=== PATIENT | female | born 1935 | race Caucasian/White ===

== ENCOUNTER 2017-06-03 10:45 | Inpatient (IN) | payer MEDICARE, BC ==
--- NOTE | 2017-05-24 23:19 | HP ---
HISTORY AND PHYSICAL: DATE OF ADMISSION/SURGERY: 06/03/17 SURGEON: Franchesca Pearson MD * (DICTATED BY CELIA HENRY) PROCEDURE: Left total knee arthroplasty. CHIEF COMPLAINT: Left knee pain. HISTORY OF PRESENT ILLNESS: Ms. Ya is an 81-year-old female with complaints of left knee pain secondary to advanced osteoarthritis. She has failed conservative management and has elected to proceed with a left total knee arthroplasty, which is scheduled for 06/03/[address] Pearson. PAST MEDICAL HISTORY: 1. High cholesterol. 2. Anemia. 3. Anxiety. 4. History of breast cancer. 5. Basal cell carcinoma. PAST SURGICAL HISTORY: 1. Lumpectomy. 2. Skin cancer excision. 3. Right total knee replacement. 4. Right knee ligament repair. 5. Right shoulder surgery. CURRENT MEDICATIONS: 1. Tramadol. 2. Trazodone. 3. Valium. 4. Ambien. 5. Ropinirole. 6. Meclizine. ALLERGIES: None. FAMILY HISTORY: Stroke, hypertension, aneurysm, and heart disease. SOCIAL HISTORY: She is an 81-year-old female, she lives alone. She does not smoke, use drugs. She denies alcohol. REVIEW OF SYSTEMS: A complete 14-point review of systems was reviewed with the patient, was positive for anemia. PHYSICAL EXAMINATION GENERAL: She is well developed, well nourished, in no acute distress. VITAL SIGNS: She stands 5 feet 2 inches tall, weighs 153 pounds. Her blood pressure is 139/73, her heart rate is 84. HEENT: Normocephalic, atraumatic. NECK: Supple. No palpable lymph nodes. PULMONARY: Lungs are clear to auscultation bilaterally. CARDIO: Regular rate and rhythm. Strong S1, S2. ABDOMEN: Soft, nontender, nondistended. NEUROLOGICAL: Alert and oriented x3. Cranial nerves II through XII are intact. MUSCULOSKELETAL: Left lower extremity, the skin is intact. There are no open wounds or abrasions. She has a moderate joint effusion, tenderness over the medial and lateral joint line. No varus or valgus instability. Negative Rianna. 5 to 100 degrees flexion. Her lower extremity muscle group strengths are intact at 5/5. She has 2+ dorsalis pedis pulses. ASSESSMENT AND PLAN: Ms. Ya is an 81-year-old female with complaints of left knee pain secondary to advanced osteoarthritis. She has failed conservative management and has elected to proceed with a left total knee arthroplasty, which is scheduled for 06/03/[address] Pearson discussed the risks and benefits of the surgery at today's visit and all of her questions were answered. Coumadin, Colace, and Percocet were sent to her pharmacy for postoperative pain control and DVT prophylaxis. She will see Dr. Pearson back in 2 weeks after the surgery. CELIA HENRY [id number]/[facility] #: [id number] MELISSA
[~2017-06-03 10:45] MED LIST: Buffered Lidocaine 0.9% SYRIN* 5 ML/SYR SYRINGE INTRADERM ONE; Famotidine IV* 10 MG/ML 2 ML (20 mg) IV ONE
[2017-06-03] MEDS ORDERED: Buffered Lidocaine 0.9% SYRIN* 5 ML/SYR SYRINGE ONE (10:51)
[2017-06-03] MEDS ORDERED: Famotidine IV* 10 MG/ML 2 ML (20 mg) ONE (10:51)
[2017-06-03] MEDS ORDERED: ceFAZolin 2 GM PREMIX(*) 2 GM/50 ML BAG IVPB ONE (10:51)
[2017-06-03] MEDS ORDERED: Gabapentin CAP(*) 300 MG PO ONE (11:49)
[2017-06-03] MEDS ORDERED: fentaNYL* 50 MCG/ML 2 ML VIAL (100 MCG VIAL) ONE (11:54)
[2017-06-03] MEDS ORDERED: Midazolam* 1 MG/ML 5 ML VIAL (5 MG) ONE (11:54)
[2017-06-03] MEDS ORDERED: Morphine PF AMP (0.5MG/ML)* 5 MG/10 ML AMP ONE (14:01)
[2017-06-03] MEDS ORDERED: KETAMINE HCL* 50 MG/ML 10 ML VIAL ONE (14:18)
[2017-06-03] MEDS ORDERED: Ondansetron INJ* 2 MG/ML VIAL ONE (14:36)
[2017-06-03] MEDS ORDERED: Ketorolac INJ* 30 MG/ML 1 ML VIAL ONE (14:36)
[2017-06-03] MEDS ORDERED: Propofol* 10 MG/ML 20 ML BTL IV PUSH ONE (14:36)
[2017-06-03] MEDS ORDERED: Lidocaine 2% PF * 5 ML VIAL ONE (14:36)
[2017-06-03] MEDS ORDERED: Acetaminophen TAB* 325 MG PO PRN (15:10)
[2017-06-03] MEDS ORDERED: oxyCODONE TAB* 5 MG TAB PO PRN (15:10)
[2017-06-03] MEDS ORDERED: DiMENhydriNATE IV* 50 MG/ML VIAL IV PUSH PRN ×2 (15:10→15:18)
[2017-06-03] MEDS ORDERED: HYDROmorphone* 1 MG/ML 1 ML SYR IV PRN (15:10)
[2017-06-03] MEDS ORDERED: Gabapentin CAP(*) 100 MG PO ONE (15:14)
[2017-06-03] MEDS ORDERED: Naloxone* 0.4 MG/ML 1 ML VIAL IV PRN (15:15)
[2017-06-03] MEDS ORDERED: Nalbuphine* 20 MG/ML 1 ML VIAL IV PRN (15:15)
[2017-06-03] MEDS ORDERED: oxyCODONE/Acetamin 5/325 MG* TAB PO PRN (15:20)
[2017-06-03] MEDS ORDERED: Diazepam TAB(*) 2 MG PO PRN ×2 (15:22→22:00)
[2017-06-03] MEDS ORDERED: Midazolam* 1 MG/ML 2 ML VIAL (2 MG) ONE (15:27)
[2017-06-03] MEDS ORDERED: Bisacodyl SUPP* 10 MG SUPP PR PRN (16:23)
[2017-06-03] MEDS ORDERED: diPHENhydraMINE IV* 50 MG/ML 1 ml VIAL (BENADRYL) IV PRN (16:23)
[2017-06-03] MEDS ORDERED: Polyethylene Glycol 3350* 17 GM PACKET PO PRN (16:23)
--- NOTE | 2017-06-03 17:12 | RAD ---
INDICATION: Left knee arthroplasty COMPARISON: May 10, 2017 TECHNIQUE: A portable 2 view examination is submitted. FINDINGS: There is left knee arthroplasty. Both femoral and tibial components appear well seated. There is overlying cooling jacket. IMPRESSION: LEFT KNEE ARTHROPLASTY.
[2017-06-03] MEDS ORDERED: Warfarin TAB(*) 6 MG PO ONE (20:30)
[2017-06-03] MEDS: traZODone TAB* 50 MG TAB PO SCH (20:36)
[2017-06-03] MEDS: Magnesium Hydroxide LIQ* 30 ML UDC PO SCH (20:36)
[2017-06-03] MEDS: Docusate CAP* 100 MG PO SCH (20:36)
[2017-06-03] MEDS: rOPINIRole TAB* 1 MG PO SCH (20:41)
[2017-06-03] MEDS: Ibuprofen TAB* 600 MG PO SCH (21:48)
[2017-06-04] MEDS: Ibuprofen TAB* 600 MG PO SCH ×2 (04:12→09:45)
[2017-06-04 05:40] LABS: Hematocrit 28 % (35-47); Hemoglobin 9.2 g/dl (12.0-16.0)
[2017-06-04 05:56] LABS: BUN/Creatinine Ratio 20.5 (8-20); EGFR African American 98.4 (>60); EGFR Non-African American 76.5 (>60); Potassium 3.7 mmol/L (3.5-5.0)
[2017-06-04] MEDS ORDERED: Meclizine TAB* 12.5 MG PO PRN (07:04)
[2017-06-04] MEDS ORDERED: diPHENhydraMINE PO* 25 MG PO PRN (07:04)
[2017-06-04] MEDS ORDERED: diPHENhydraMINE IV* 50 MG/ML 1 ml VIAL (BENADRYL) IV PRN (07:04)
[2017-06-04] MEDS ORDERED: Ondansetron INJ* 2 MG/ML VIAL IV PRN (07:04)
[2017-06-04] MEDS ORDERED: Morphine INJ* 10 MG/ML 1 ML SYRINGE IV PRN (07:04)
[2017-06-04] MEDS ORDERED: Ondansetron TAB* 4 MG PO PRN (07:04)
[2017-06-04] MEDS ORDERED: oxyCODONE/Acetamin 5/325 MG* TAB PO PRN (07:04)
[2017-06-04] MEDS: Cholecalciferol TAB* 1000 UNITS PO SCH (07:31)
[2017-06-04] MEDS: Docusate CAP* 100 MG PO SCH ×2 (07:37→20:04)
[2017-06-04] MEDS: oxyCODONE TAB* 5 MG TAB PO PRN ×4 (07:37→20:04)
[2017-06-04] MEDS: Magnesium Hydroxide LIQ* 30 ML UDC PO SCH ×2 (07:37→19:42)
[2017-06-04] MEDS: Acetaminophen TAB* 325 MG PO PRN ×4 (07:37→20:04)
[2017-06-04] MEDS: rOPINIRole TAB* 1 MG PO SCH ×3 (07:38→21:11)
--- NOTE | 2017-06-04 07:47 | PN ---
Progress Note - Progress Note Date of Service: 06/04/17 SOAP: Subjective: Pt. is alert, no c/o Objective: LLE - dressing c/d/i, distally +df/pf, full sens lt, 2+ dp pulse. Vital Signs: Temp Pulse Resp BP Pulse Ox 97.7 F 71 16 82/41 100 06/04/17 07:22 06/04/17 07:22 06/04/17 07:40 06/04/17 07:22 06/04/17 07:40 Laboratory Results - last 24 hr 06/04/17 06/04/17 06/04/17 05:32 05:32 05:32 Hgb 9.2 L Hct 28 L INR (Anticoag Therapy) 0.97 Sodium 135 Potassium 3.7 Chloride 102 Carbon Dioxide 30 Anion Gap 3 BUN 15 Creatinine 0.73 Est GFR ( Amer) 98.4 Est GFR (Non-Af Amer) 76.5 BUN/Creatinine Ratio 20.5 H Glucose 107 H Calcium 8.0 L Assessment: 81 yo F pod 1 s/p LTKA Plan: 8 mg coumadin tonight, lovenox today wbat pt/ot 1 L NS for hypotension plan home with vns
[2017-06-04] MEDS ORDERED: Diazepam TAB(*) 5 MG PO SCH (09:00)
[2017-06-04] MEDS: NS 0.9% 1000 ML* 1,000 ML IV SCH ×2 (09:30→13:50)
[2017-06-04] MEDS ORDERED: Enoxaparin(*) 30 MG/0.3 ML SYR SUBCUT SCH (17:00)
[2017-06-04] MEDS ORDERED: Warfarin TAB(*) 4 MG PO ONE (17:00)
--- NOTE | 2017-06-04 20:40 | OP ---
OPERATIVE NOTE: DATE OF OPERATION: 06/03/17 DATE OF : 35 ATTENDING SURGEON: Franchesca Pearson MD BUNDLE TIER AND LABELER: CELIA Dorado Sharonda Red did help throughout the procedure with preparation of the leg, wound retraction, manipula tion of the knee, and wound closure. ANESTHESIOLOGIST: Dr. Cota. ANESTHESIA: Spinal. PRE-OP DIAGNOSIS: Severe end-stage degenerative osteoarthritis of the left knee joint with valgus d eformity. POST-OP DIAGNOSIS: Severe end-stage degenerative osteoarthritis of the left knee joint with valgus deformity. OPERATIVE PROCEDURE: Left total knee arthroplasty. TOURNIQUET TIME: 38 minutes. EBL: 200 cc. SPECIMENS: Bone and cartilage from the left knee joint sent to pathology. HARDWARE USED: This is [employer] cemented total knee arthroplasty hardware. For the cement, two packages of Simplex bone cement. For the femur, a left narrow, size 5 femoral component. For t he tibia, a size 3 tibial baseplate. For the insert, a 9-mm posterior stabilized articular insert, size 3-4. For the patella, a 29-mm 7.5 thickness, 3-peg all poly patella. BRIEF HISTORY/INDICATIONS: Ms. Ya is an 81-year-old female with increasingly severe left knee ketan n and valgus deformity. She failed conservative treatment with antiinflammatories, pain medication, intraarticular injections, and physical therapy. Radiographs confirmed [id number] severe arthrit is. Due to continued pain and decreased quality of life, she elected to undergo left total knee art hroplasty. Informed consent was obtained from the patient. She understood the risks of surgery inc luded but were not limited to bleeding, infection, damage to nearby structures, continued pain, need for further surgery, intraoperative fracture, nerve palsy, hardware failure or loosening, knee stif fness, loss of motion, stroke, heart attack, blood clot, and . She wished to proceed. INTRAOPERATIVE FINDINGS: Intraoperatively, the patient had 10 degrees valgus deformity, corrected t o 3 degrees by the end of the case. She had severe end-stage arthritis of the patellofemoral and la teral compartments with complete loss of cartilage. She had some noted lateral femoral condylar hyp oplasia. DESCRIPTION OF PROCEDURE: Ms. Ya was identified in the preanesthesia unit. Her left lower extrem ity was marked as the correct operative side. Informed consent was signed and placed in the chart. The patient was taken to the operating room and placed under spinal anesthesia without difficulty. Epperson catheter was placed. Tourniquet was placed on the left thigh. The left lower extremity was p repped and draped in the usual sterile fashion. Preop time-out was made to correctly identify the p atient's side and site. Appropriate perioperative antibiotics were given within 1 hour of incision. Tourniquet was inflated and total tourniquet time for this procedure was 38 minutes. A 12-cm midlin e incision was made with a 10-blade and carried down to the extensor mechanism. A new 10-blade was used to make a standard medial parapatellar arthrotomy. The patella was subluxed laterally. Electr ocautery was used to subperiosteally elevate the soft tissue along the superomedial tibia to the mid sagittal plane. The knee was flexed up. A drill was used to enter the distal femur. Intramedulla ry distal femoral cutting guide was pinned into position. Oscillating saw was used to make the dista l femoral cut. Next, the external rotation guide was placed on the distal femur. Femur was sized t o a size 5. A size 5 multi-cutting jig was placed on the distal femur. Chamfer cuts were made with the oscillating saw. The PCL was completely released at this point. Tibia was subluxed anteriorly. The extramedullary p roximal tibial cutting guide was pinned down the proximal tibia. Oscillating saw was used to make th e proximal tibial cut. The bone was carefully removed. The knee was brought out into full extensio n. Spacer block had good fit. There was balanced medial and lateral ligaments. Overall alignment w as satisfactory. Flexion and extension gaps were well balanced. The knee was flexed up. Lamina stock controller was placed both medially and laterally. Any remaining menis cus was carefully removed with electrocautery. Posterior osteophytes were removed with a curved ost eotome. A trial size 5 narrow left femur was impacted on to the distal femur without difficulty. T here was good fit and stability. The box for the posterior stabilized implant was prepared using a reamer and box cut osteotome. Size 3 tibial tray trial with a 9-mm insert trial was placed and the knee was taken through a range of motion. There was full extension to 130 degrees of flexion. The patella was everted. A 7 mm of patellar bone and cartilage were carefully removed with an oscillati ng saw. The patella was sized to a size 29. Three peg holes were drilled through the size 29 guide . The 29 trial with 7.5 thickness was placed and the knee was taken through a range of motion. The re was good patellofemoral tracking. All trials were carefully removed. The tibia was subluxed anteriorly and sized to a size 3. Proxim al tibia was prepared using a size 3 keel punch. All bony cut surfaces were copiously irrigated wit h sterile saline and dried. Final implants were cemented into place starting with the tibia, follow ed by the femur and last the patella. A 9-mm insert trial was placed while the knee was brought out into full extension and the cement was allowed to fully cure. Tourniquet was turned down at 38 minutes. Electrocautery was used to obtain meticulous hemostasis. The knee was copiously irrigated with sterile saline. Once the cement had fully cured, the insert trial was removed. Any excess cement was carefully removed from around the capsule and hardware. F inal insert chosen was a 9-mm posterior stabilized articular insert, size 3-4. This was locked into position on the tibial tray without difficulty. Stability of the insert was checked and rechecked and noted to be stable. Final range of motion was full extension to 130 degrees of flexion. The ex tensor mechanism was closed using interrupted #1 Vicryl. The rest of the incision was closed in a l ayered fashion using 0 and 2-0 Vicryl. Skin was closed using running 3-0 nylon suture. Sterile Xer oform, 4x4's, and Webril were used to cover the incision. Dany wrap and cold pack were placed over t his. The patient's anesthesia was reversed without difficulty. She was taken to the PACU in stable condition. Intended weightbearing will be weightbearing as tolerated. Intended DVT prophylaxis wi ll be Coumadin with a Lovenox bridge. [id number]/[facility] #: [id number]
[2017-06-04] MEDS ORDERED: Zolpidem TAB* 10 MG PO SCH (21:00)
[2017-06-04] MEDS: Cyclobenzaprine TAB* 10 MG PO PRN (21:11)
[2017-06-04] MEDS: traZODone TAB* 50 MG TAB PO SCH (21:12)
[2017-06-05] MEDS: oxyCODONE TAB* 5 MG TAB PO PRN ×6 (00:07→22:17)
[2017-06-05] MEDS: Acetaminophen TAB* 325 MG PO PRN ×2 (00:07→05:50)
[2017-06-05 07:04] LABS: Hematocrit 31 % (35-47); Hemoglobin 10.2 g/dl (12.0-16.0)
[2017-06-05] MEDS: rOPINIRole TAB* 1 MG PO SCH ×3 (09:12→22:16)
[2017-06-05] MEDS: Docusate CAP* 100 MG PO SCH ×2 (09:12→22:16)
[2017-06-05] MEDS: Magnesium Hydroxide LIQ* 30 ML UDC PO SCH ×2 (09:13→22:16)
[2017-06-05] MEDS: Cyclobenzaprine TAB* 10 MG PO PRN (09:13)
[2017-06-05] MEDS: Cholecalciferol TAB* 1000 UNITS PO SCH (09:20)
[2017-06-05] MEDS ORDERED: Oxymetazoline 0.05% NASAL SPR* 15 ML BTL BOTH NARES ONE (10:25)
--- NOTE | 2017-06-05 10:25 | PN ---
Progress Note - Progress Note Date of Service: 06/05/17 SOAP: Subjective: Pt. is alert, tired today. Objective: LLE - dressing changed, inc c/d/i. distally nvi. Vital Signs: Temp Pulse Resp BP Pulse Ox 97.5 F 78 16 139/64 99 06/05/17 07:52 06/05/17 07:52 06/05/17 10:05 06/05/17 07:52 06/05/17 08:00 Laboratory Results - last 24 hr 06/05/17 06/05/17 06:31 06:31 Hgb 10.2 L Hct 31 L INR (Anticoag Therapy) 1.76 H Assessment: 81 yo F pod 2 s/p RTKA Plan: wbat rle pt/ot 2 mg coumadin tonight d/c lovenox plan d/c to home tomorrow with vns
[2017-06-05] MEDS ORDERED: Warfarin TAB(*) 2 MG PO ONE (17:00)
[2017-06-05] MEDS: traZODone TAB* 50 MG TAB PO SCH (22:16)
[2017-06-06] MEDS: oxyCODONE TAB* 5 MG TAB PO PRN ×3 (03:46→12:46)
[2017-06-06 06:45] LABS: Hematocrit 27 % (35-47); Hemoglobin 9.1 g/dl (12.0-16.0)
[2017-06-06] MEDS: Magnesium Hydroxide LIQ* 30 ML UDC PO SCH (07:51)
[2017-06-06] MEDS: Cholecalciferol TAB* 1000 UNITS PO SCH (07:51)
[2017-06-06] MEDS: rOPINIRole TAB* 1 MG PO SCH (07:51)
[2017-06-06] MEDS: Docusate CAP* 100 MG PO SCH (07:51)
--- NOTE | 2017-06-06 08:46 | PN ---
Progress Note - Progress Note Date of Service: 06/06/17 SOAP: Subjective: POD #3 Left TKA, doing well. Would like to go home today after PT. Denies CP/SOB , f/c or calf pain Objective: Vitals: Temp Pulse Resp BP Pulse Ox 98.1 F 86 18 128/49 94 06/06/17 07:35 06/06/17 07:35 06/06/17 07:51 06/06/17 07:35 06/06/17 07:35 Gen: A&Ox3, NAD at rest sitting in chair LLE: Dressing C/D/I, moderate edema and ecchymosis to lower leg but calf soft, NT. +f/e at ankle and MTPs. Sensation intact. DP 2+ Labs: Laboratory Results - last 24 hr 06/06/17 06/06/17 06:10 06:10 Hgb 9.1 L Hct 27 L INR (Anticoag Therapy) 1.90 H Assessment: POD #3 Left TKA Plan: D/C home today INR 1.9, Coumadin 2mg tonight F/u with Dr. Pearson 10-14 days
[2017-06-06 12:47] VITALS: BP 122/60
--- NOTE | 2017-06-06 14:31 | DS ---
DISCHARGE SUMMARY: DATE OF ADMISSION: 06/03/17 DATE OF DISCHARGE: 06/06/17 PROVIDER: Franchesca Pearson MD * (DICTATED BY CELIA BERNAL) ADMISSION DIAGNOSES: Severe end-stage osteoarthritis of the left knee. DISCHARGE DIAGNOSES: Severe end-stage osteoarthritis of the left knee, status post left total knee arthroplasty. SECONDARY DIAGNOSES: 1. High cholesterol. 2. Anemia. 3. Anxiety. 4. History of breast cancer. 5. Basal cell carcinoma. HISTORY OF PRESENT ILLNESS: Ms. Ya is an 81-year-old female with ongoing complaints of left knee pain secondary to advanced osteoarthritis. She failed conservative management and elected to proceed with a left total knee arthroplasty. HOSPITAL COURSE: On 06/03/17, the patient was admitted to [facility] and underwent a successful left total knee arthroplasty by Dr. Pearson. She recovered briefly in the postanesthesia care unit and was transferred to the short- stay surgical unit in stable condition. On postop day 1, the patient had some mild hypotension which responded well to a 1 L bolus of lactated Ringer's. Her H and H was 9.2 and 28, INR was 0.97 with 6 mg of Coumadin. Previously, her pain was well controlled with oral pain medication. She was able to participate in physical therapy; however, was unable to walk extended distance. On postop day 2, the patient states that she was feeling a little bit better and was able to do more with physical therapy. Her H and H was 10.1 and 31. INR was 1.7 with 8 mg of Coumadin previously. On postop day 3 , the patient was found stable for discharge home and was comfortable with this plan. She was able to walk a longer distance with the use of a rolling walker. Her pain continued to be well controlled with oral pain medications. H and H was 9.1 and 27. INR was 1.9 with 2 mg of Coumadin previously. DISCHARGE CONDITION: Stable. DISCHARGE MEDICATIONS: 1. The patient will continue with Percocet 5/325 one to two tablets p.o. q.4 to 6 hours p.r.n. pain. 2. Colace 100 mg p.o. b.i.d. p.r.n. constipation. 3. Coumadin 2 mg on 06/06/17. She will have a redraw of her INR on 06/07/17. 4. The patient will resume her home medications of trazodone 50 mg p.o. q.h.s. 5. Ambien 1 tab p.o. q.h.s. 6. Requip 1 tab p.o. t.i.d. 7. Meclizine 25 mg p.o. t.i.d. p.r.n. 8. Magnesium supplement. 9. Multivitamin. 10. Valium 1 tab p.o. daily. 11. Co-Q10 supplement 100 mg p.o. daily. 12. Vitamin D supplement 1000 units p.o. daily. DISCHARGE INSTRUCTIONS: The patient will be weightbearing as tolerated with the use of a rolling walker. She is understanding to keep her dressing on and keep it dry until postop day 4. At that time, she may shower normally; however , she is understanding not to submerge the wound in a bathtub, hot tub, or a swimming pool. A dry dressing will be applied as needed. She will have visiting nurse service for wound care and home INR draws. She will also have home physical therapy. The patient is understanding to call with any questions , concerns, fever greater than 101.5, calf pain, swelling, significant knee pain , swelling, erythema. She has understanding to go directly to the emergency room with any chest pain or shortness of breath. She will follow up in the office 10 to [address] Pearson. All of her questions were answered to her full satisfaction. CELIA BERNAL [id number]/[facility] #: [id number] MELISSA
== END 2017-06-06 12:15 | disposition home health service (06) | DRG 470 ==
LOC: AA 10:45 → SSU 16:23
PROVIDERS: ADMIT Orthopaedic Surgery Adult Reconstructive Orthopaedic Surgery; ATTEND Orthopaedic Surgery Adult Reconstructive Orthopaedic Surgery
PROC: 0SRD0J9 Replacement of Left Knee Joint with Synthetic Substitute, Cemented, Open Approach (ICD-10-PCS; principal; 2017-06-03 13:00)
DX: M17.12 Unilateral primary osteoarthritis, left knee (principal); I95.9 Hypotension, unspecified; E78.00 Pure hypercholesterolemia, unspecified; D64.9 Anemia, unspecified; F41.9 Anxiety disorder, unspecified; Z85.828 Personal history of other malignant neoplasm of skin; Z85.3 Personal history of malignant neoplasm of breast; Z96.651 Presence of right artificial knee joint; Z82.49 Family history of ischemic heart disease and other diseases of the circulatory system; Z82.3 Family history of stroke; G25.81 Restless legs syndrome; M21.062 Valgus deformity, not elsewhere classified, left knee; Z88.8 Allergy status to other drugs, medicaments and biological substances
CPT/HCPCS: 36415; 80048; 85014; 85018; 85610; 94760; A9270-GY; C1776; J0690; J1650; J1885; J2250; J2405; J2704; J3010

== ENCOUNTER 2020-11-25 06:19 | Inpatient (IN) ==
[~2020-11-25 06:19] MED LIST changes: -Buffered Lidocaine 0.9% SYRIN* 5 ML/SYR SYRINGE INTRADERM ONE; +Buffered Lidocaine 1% SYRIN 1 ml INTRADERM ONE; -Famotidine IV* 10 MG/ML 2 ML (20 mg) IV ONE; +Lactated Ringers 1000 ml BAG 1,000 ML IV SCH
[2020-11-25] MEDS ORDERED: ceFAZolin 2 GM PREMIX 2 GM/50 ML BAG ONE (06:31)
[2020-11-25] MEDS ORDERED: Bupivacaine 0.5% SDV PF 30ML VIAL ONE (07:11)
[2020-11-25] MEDS ORDERED: Buffered Lidocaine 1% SYRIN 1 ml INTRADERM ONE (07:14)
[2020-11-25] MEDS ORDERED: fentaNYL 100 mcg/2 ml 50 MCG/ML VIAL ONE (07:22)
[2020-11-25] MEDS ORDERED: Midazolam 2 mg/2 ml VIAL 1 mg/ml 2 ml VIAL (2 mg) ONE (07:22)
[2020-11-25] MEDS ORDERED: Dexamethasone IV 4 MG/ML VIAL 1 ml VIAL ONE (07:23)
[2020-11-25] MEDS ORDERED: Propofol 10 MG/ML 20 ML BTL ONE (07:23)
[2020-11-25] MEDS ORDERED: ROPIVACAINE 5 MG/ML 30 ML BTL (0.5%) ONE (07:23)
[2020-11-25] MEDS ORDERED: Lidocaine 2% PF 5 ML VIAL ONE (07:23)
[2020-11-25] MEDS ORDERED: Rocuronium 50 mg VIAL 10 mg/ml 5 ml VIAL (50 mg) ONE (07:26)
[2020-11-25] MEDS ORDERED: Phenylephrine 40 mcg/mL 10mL (400mcg) SYRINGE ONE (09:01)
[2020-11-25] MEDS ORDERED: Phenylephrine IV 10 MG/ML 1 ml VIAL ONE (09:01)
[2020-11-25] MEDS ORDERED: EPHEDrine (Pressors) 50 MG/ML VIAL ONE (09:02)
[2020-11-25] MEDS ORDERED: Vancomycin 1,000 MG VIAL ONE (09:39)
[2020-11-25] MEDS ORDERED: fentaNYL 100 mcg/2 ml 50 MCG/ML VIAL IV PRN (10:09)
[2020-11-25] MEDS ORDERED: DiMENhydriNATE IV 50 mg/ml 1 ml VIAL IV PUSH PRN (10:09)
[2020-11-25] MEDS ORDERED: Naloxone 0.4 mg VIAL 0.4 mg/ml 1 ml VIAL IV PRN (10:09)
[2020-11-25] MEDS ORDERED: Ondansetron 4 mg VIAL 2 MG/ML 2 ml VIAL IV PRN ×2 (10:09→10:31)
[2020-11-25] MEDS ORDERED: oxyCODONE/Acetamin 5/325 mg TAB PO PRN (10:09)
[2020-11-25] MEDS ORDERED: Lactulose 30 ml UDC PO PRN (10:31)
[2020-11-25] MEDS ORDERED: diPHENhydraMINE 25 mg TAB PO PRN (10:31)
[2020-11-25] MEDS ORDERED: Morphine 2 MG/ML SYRINGE IV PRN (10:31)
[2020-11-25] MEDS ORDERED: Ondansetron ODT 4 mg TAB 4 MG TAB PO PRN (10:31)
[2020-11-25] MEDS ORDERED: Magnesium Hydroxide LIQ 30 ML UDC PO PRN (10:31)
[2020-11-25] MEDS ORDERED: diPHENhydraMINE IV 50 MG/ML 1 ml VIAL (BENADRYL) IV PRN (10:31)
[2020-11-25] MEDS ORDERED: D5W 1/2 NS 1000 ml BAG 1,000 ML IV SCH (11:00)
[2020-11-25] MEDS ORDERED: oxyCODONE/Acetamin 5/325 mg TAB ONE (11:16)
[2020-11-25] MEDS: ceFAZolin 1 GM ADVAN 1 GM in NS 0.9% 50 ML 50 ML IVPB SCH (16:33)
[2020-11-25] MEDS ORDERED: ROPINIROLE 2 MG PO SCH (21:00)
[2020-11-25] MEDS: Magnesium Hydroxide LIQ 30 ML UDC PO SCH (21:20)
[2020-11-26] MEDS: ceFAZolin 1 GM ADVAN 1 GM in NS 0.9% 50 ML 50 ML IVPB SCH ×2 (00:50→07:48)
[2020-11-26 06:32] LABS: Hematocrit 33 % (35-47); Hemoglobin 11.1 g/dL (12.0-16.0); Mean Platelet Volume 8.8 fL (7.4-10.4); Platelet Count 201 10^3/uL (150-450)
[2020-11-26 06:51] LABS: BUN/Creatinine Ratio 18.5 (8-20); Calcium 8.9 mg/dL (8.6-10.3); EGFR African American 129.8 (>60); EGFR Non-African American 107.3 (>60); Potassium 3.8 mmol/L (3.5-5.0)
[2020-11-26] MEDS: Magnesium Hydroxide LIQ 30 ML UDC PO SCH (07:56)
[2020-11-26] MEDS ORDERED: Senna TAB 8.6 mg TAB PO SCH (09:00)
[2020-11-26] MEDS ORDERED: Vitamin THERAPEUTIC TAB PO SCH (09:00)
[2020-11-26 15:46] VITALS: BP 125/57
== END 2020-11-26 16:40 | disposition home health service (06) | DRG 483 ==
LOC: OBSVTOIN 06:19 → INTOOBSV 06:19 → AA 06:19 → SSU 11:32
PROVIDERS: ADMIT Orthopaedic Surgery; ATTEND Orthopaedic Surgery

== ENCOUNTER 2022-09-06 14:01 | Inpatient (IN) ==
[2022-09-06 16:55] LABS: ABS Lymphocytes 0.3 10^3/ul (1.0-4.8); ABS Monocytes 1.1 10^3/ul (0-0.8); ABS Neutrophils 14.3 10^3/ul (1.5-7.7); Eosinophil % 0.1 %; Hematocrit 35 % (35-47); Hemoglobin 11.5 g/dL (12.0-16.0); Lymphocyte % 2.2 %; Mean Corpuscular HGB Conc 33 g/dL (31-36); Mean Corpuscular Hemoglobin 29 pg (27-31); Mean Corpuscular Volume 88 fL (80-97); Mean Platelet Volume 9.1 fL (7.4-10.4); Platelet Count 168 10^3/uL (150-450); Red Blood Count 3.98 10^6 /uL (3.70-4.87); Red Cell Distribution Width 14 % (10-15); White Blood Count 15.8 10^3/uL (3.5-10.8)
[2022-09-06] MEDS ORDERED: Vancomycin 1,000 MG in NS 0.9% 250 ml 250 ML IVPB ONE (17:29)
[2022-09-06] MEDS ORDERED: fentaNYL 100 mcg/2 ml 50 MCG/ML VIAL IV SLOW PU ONE ×2 (17:30→19:08)
[2022-09-06 17:55] LABS: Albumin/Globulin Ratio 1.7 (1-3); C Reactive Protein 300.17 mg/L (<8.01); Globulin 2.4 g/dL (2-4); Potassium 3.8 mmol/L (3.5-5.0); Total Bilirubin 0.6 mg/dL (0.2-1.0); Total Protein 6.4 g/dL (6.4-8.9); eGFR CKD-EPI 82.2 (>60)
[2022-09-06 17:59] LABS: Erythrocyte Sed Rate 57 mm/Hr (0-29)
[2022-09-06 19:27] LABS: Magnesium 2.5 mg/dL (1.9-2.7)
[2022-09-06 19:52] LABS: Osmolality Serum 270 mOsm/kg (275-295)
[2022-09-06] MEDS ORDERED: Vancomycin per Pharmacy 1 EA NOTE FOLLOW UP SCH (20:00)
[2022-09-06] MEDS ORDERED: Acetaminophen IV 1 GM/100ML 1,000 MG/100 ML BAG IV PRN (20:24)
[2022-09-06] MEDS ORDERED: cefTRIAXone 1 gm/50 mL D5W 1 GM/50 ML BAG IV SCH ×2 (20:30→22:00)
[2022-09-06] MEDS ORDERED: NS 0.9% 500 ml BAG 500 ML IV ONE (20:45)
[2022-09-06] MEDS ORDERED: [UNRECOGNIZED DRUG - OTHER] PO SCH (21:00)
[2022-09-06] MEDS: CMCS: Pravastatin 20 mg TAB (NF) PO SCH (21:54)
[2022-09-06 22:38] LABS: Potassium 3.6 mmol/L (3.5-5.0); eGFR CKD-EPI 89.5 (>60)
[2022-09-06] MEDS: Morphine 2 MG/ML SYRINGE IV PRN (22:41)
[2022-09-06] MEDS ORDERED: Ondansetron ODT 4 mg TAB 4 MG TAB SL PRN (22:48)
[2022-09-06] MEDS ORDERED: KCL 20 MEQ/100 ML IVPREMIX 20 MEQ/100 ML BAG IV ONE (22:48)
[2022-09-06 22:58] LABS: Urine Osmo 270 mOsm/kg (150-1150)
[2022-09-06 23:03] LABS: Urine Appearance Clear; Urine Bilirubin Negative (Negative); Urine Blood Negative (Negative); Urine Color Yellow; Urine Glucose Negative (Negative); Urine Ketones Negative (Negative); Urine Nitrite Negative (Negative); Urine Protein Negative (Negative); Urine Specific Gravity 1.009 (1.002-1.030); Urine Urobilinogen Negative (Negative)
[2022-09-06] MEDS: cefTRIAXone 1 GM Q24H (ADVAN) IVPB SCH (23:11)
[2022-09-06 23:13] LABS: Urine Bacteria Absent (Absent); Urine Red Blood Cell 1+(3-5/hpf) (Absent); Urine Squamous Epithelial Cell Present (Absent); Urine White Blood Cell 1+(6-10/hpf) (Absent)
[2022-09-07 06:46] LABS: INR 1.05 (0.89-1.11)
[2022-09-07 06:48] LABS: Anion Gap 11 mmol/L (2-11); CO2 Carbon Dioxide 22 mmol/L (22-32); Calcium 7.9 mg/dL (8.6-10.3); Chloride 96 mmol/L (101-111); Magnesium 2.3 mg/dL (1.9-2.7); Potassium 4.3 mmol/L (3.5-5.0); Sodium 129 mmol/L (135-145)
[2022-09-07 06:54] LABS: Blood Urea Nitrogen 10 mg/dL (6-24); Glucose 108 mg/dL (70-100); Total Iron Binding Capacity 253 mcg/dL (250-450); Transferrin 181 mg/dL (203-362); eGFR CKD-EPI 89.9 (>60)
[2022-09-07 06:56] LABS: % Iron Saturation 8 % (15-55); Iron < 20 ug/dL (50-212); Unsaturated Iron Binding 233 ug/dL
[2022-09-07 06:59] LABS: ABS Basophils 0.1 10^3/ul (0-0.2); ABS Eosinophils 0.1 10^3/ul (0-0.6); ABS Lymphocytes 0.3 10^3/ul (1.0-4.8); ABS Neutrophils 9.9 10^3/ul (1.5-7.7); Eosinophil % 0.7 %; Hematocrit 31 % (35-47); Lymphocyte % 2.5 %; Mean Corpuscular HGB Conc 32 g/dL (31-36); Mean Corpuscular Hemoglobin 29 pg (27-31); Mean Corpuscular Volume 89 fL (80-97); Mean Platelet Volume 9.4 fL (7.4-10.4); Platelet Count 147 10^3/uL (150-450); Red Blood Count 3.49 10^6 /uL (3.70-4.87); Red Cell Distribution Width 14 % (10-15); White Blood Count 11.4 10^3/uL (3.5-10.8)
[2022-09-07] MEDS: Vancomycin 750 MG in NS 0.9% 250 ML IVPB SCH ×2 (07:48→20:16)
[2022-09-07 08:25] LABS: Ferritin 121.4 ng/mL (11-307)
[2022-09-07] MEDS: Morphine 2 MG/ML SYRINGE IV PRN (09:12)
[2022-09-07] MEDS ORDERED: Buffered Lidocaine 1% SYRIN 1 ml INTRADERM ONE (15:13)
[2022-09-07] MEDS ORDERED: Lactated Ringers 1000 ml BAG 1,000 ML IV SCH (16:00)
[2022-09-07] MEDS ORDERED: fentaNYL 100 mcg/2 ml 50 MCG/ML VIAL ONE (16:35)
[2022-09-07] MEDS ORDERED: Ondansetron 4 mg VIAL 2 MG/ML 2 ml VIAL ONE (16:36)
[2022-09-07] MEDS ORDERED: Propofol 10 MG/ML 20 ML BTL ONE (16:36)
[2022-09-07] MEDS ORDERED: Lidocaine 2% PF 5 ML VIAL ONE (16:36)
[2022-09-07] MEDS ORDERED: Levalbuterol HFA INHALER MDI ONE (17:29)
[2022-09-07] MEDS ORDERED: Acetaminophen IV 1 GM/100ML 1,000 MG/100 ML BAG IV PRN (17:43)
[2022-09-07] MEDS ORDERED: Naloxone 0.4 mg VIAL 0.4 mg/ml 1 ml VIAL IV PRN (17:43)
[2022-09-07] MEDS ORDERED: fentaNYL 100 mcg/2 ml 50 MCG/ML VIAL IV PRN (17:43)
[2022-09-07] MEDS ORDERED: Ondansetron 4 mg VIAL 2 MG/ML 2 ml VIAL IV PRN (17:43)
[2022-09-07] MEDS: CMCS: Pravastatin 20 mg TAB (NF) PO SCH (21:19)
[2022-09-07] MEDS: cefTRIAXone 1 GM Q24H (ADVAN) IVPB SCH (22:36)
[2022-09-08 07:26] LABS: ABS Basophils 0.1 10^3/ul (0-0.2); ABS Eosinophils 0.3 10^3/ul (0-0.6); ABS Lymphocytes 0.5 10^3/ul (1.0-4.8); ABS Monocytes 0.9 10^3/ul (0-0.8); ABS Neutrophils 7.6 10^3/ul (1.5-7.7); Eosinophil % 3.4 %; Hematocrit 30 % (35-47); Hemoglobin 9.8 g/dL (12.0-16.0); Lymphocyte % 5.5 %; Mean Corpuscular HGB Conc 33 g/dL (31-36); Mean Corpuscular Hemoglobin 29 pg (27-31); Mean Corpuscular Volume 88 fL (80-97); Mean Platelet Volume 9.1 fL (7.4-10.4); Platelet Count 180 10^3/uL (150-450); Red Blood Count 3.39 10^6 /uL (3.70-4.87); Red Cell Distribution Width 14 % (10-15); White Blood Count 9.4 10^3/uL (3.5-10.8)
[2022-09-08] MEDS ORDERED: Vancomycin Trough Check NOTE FOLLOW UP ONE (07:30)
[2022-09-08 08:03] LABS: C Reactive Protein 244.84 mg/L (<8.01); Calcium 8.1 mg/dL (8.6-10.3); Potassium 4.4 mmol/L (3.5-5.0); Vancomycin Trough 7.8 mcg/mL; eGFR CKD-EPI 89.1 (>60)
[2022-09-08] MEDS: Morphine 2 MG/ML SYRINGE IV PRN ×3 (09:14→17:22)
[2022-09-08] MEDS: Enoxaparin 40 MG/0.4 ML SYR SUBCUT SCH (09:19)
[2022-09-08] MEDS ORDERED: Vancomycin 1000 MG in NS 0.9% 250 ML IVPB SCH (11:00)
[2022-09-08] MEDS: Vancomycin 750 MG in NS 0.9% 250 ML IVPB SCH (11:05)
[2022-09-08] MEDS: CMCS: Pravastatin 20 mg TAB (NF) PO SCH (21:41)
[2022-09-08] MEDS: cefTRIAXone 1 GM Q24H (ADVAN) IVPB SCH (21:54)
[2022-09-09 07:02] LABS: ABS Eosinophils 0.2 10^3/ul (0-0.6); ABS Lymphocytes 0.4 10^3/ul (1.0-4.8); ABS Monocytes 0.7 10^3/ul (0-0.8); ABS Neutrophils 4.3 10^3/ul (1.5-7.7); Eosinophil % 3.9 %; Hematocrit 30 % (35-47); Hemoglobin 10.3 g/dL (12.0-16.0); Lymphocyte % 7.8 %; Mean Corpuscular HGB Conc 34 g/dL (31-36); Mean Corpuscular Hemoglobin 30 pg (27-31); Mean Corpuscular Volume 87 fL (80-97); Mean Platelet Volume 8.7 fL (7.4-10.4); Platelet Count 204 10^3/uL (150-450); Red Blood Count 3.48 10^6 /uL (3.70-4.87); Red Cell Distribution Width 14 % (10-15); White Blood Count 5.7 10^3/uL (3.5-10.8)
[2022-09-09 07:26] LABS: Calcium 8.5 mg/dL (8.6-10.3); Potassium 4.1 mmol/L (3.5-5.0); eGFR CKD-EPI 91.6 (>60)
[2022-09-09 09:05] LABS: C Reactive Protein 158.06 mg/L (<8.01)
[2022-09-09] MEDS: Enoxaparin 40 MG/0.4 ML SYR SUBCUT SCH (09:34)
[2022-09-09] MEDS: CMCS: Pravastatin 20 mg TAB (NF) PO SCH (20:45)
[2022-09-09] MEDS: Morphine 2 MG/ML SYRINGE IV PRN (20:48)
[2022-09-09] MEDS: cefTRIAXone 1 GM Q24H (ADVAN) IVPB SCH (22:00)
[2022-09-10 06:47] LABS: ABS Eosinophils 0.3 10^3/ul (0-0.6); ABS Lymphocytes 0.6 10^3/ul (1.0-4.8); ABS Monocytes 0.9 10^3/ul (0-0.8); ABS Neutrophils 3.7 10^3/ul (1.5-7.7); Eosinophil % 4.7 %; Hematocrit 33 % (35-47); Hemoglobin 10.9 g/dL (12.0-16.0); Lymphocyte % 10.6 %; Mean Corpuscular HGB Conc 33 g/dL (31-36); Mean Corpuscular Hemoglobin 29 pg (27-31); Mean Corpuscular Volume 87 fL (80-97); Mean Platelet Volume 8.2 fL (7.4-10.4); Platelet Count 255 10^3/uL (150-450); Red Blood Count 3.74 10^6 /uL (3.70-4.87); Red Cell Distribution Width 14 % (10-15); White Blood Count 5.5 10^3/uL (3.5-10.8)
[2022-09-10 07:01] LABS: Calcium 9.1 mg/dL (8.6-10.3); eGFR CKD-EPI 90.3 (>60)
[2022-09-10] MEDS: Enoxaparin 40 MG/0.4 ML SYR SUBCUT SCH (08:05)
[2022-09-10] MEDS ORDERED: Vancomycin Trough Check NOTE FOLLOW UP ONE (11:00)
[2022-09-10 11:05] VITALS: BP 147/75
[2022-09-10] MEDS ORDERED: cefTRIAXone 1 gm/50 mL D5W 1 GM/50 ML BAG IV ONE (12:00)
== END 2022-09-10 15:05 | disposition home or self-care (01) | DRG 605 ==
LOC: EDHOLD 14:01 → ED 14:01 → SUATTDRO 18:44 → MED 20:57
PROVIDERS: ADMIT Student in an Organized Health Care Education/Training Program; ATTEND Internal Medicine
PROC: S.ORI&D (2022-09-07 16:45)